=== PATIENT | female | born 1965 | race Caucasian/White ===

== ENCOUNTER 2021-11-15 05:28 | Day surgery (SDC) | payer OTHER ==
[~2021-11-15] VITALS: Ht 160 cm; Wt 72.3 kg
[2021-11-15] MEDS ORDERED: LIDOCAINE 4% 50 ML SOLUTION TP ONE ×2 (05:29)
[2021-11-15] MEDS ORDERED: BENZOCAINE 20% 50 MCG/SPRAY 57 GM TP ONE (05:29)
[2021-11-15] MEDS ORDERED: LIDOCAINE 2% 30 ML JELLY TP ONE (05:29)
[2021-11-15] MEDS ORDERED: SODIUM CHLORIDE 0.9% 1,000 ML IV ONE (06:30)
[2021-11-15] MEDS ORDERED: SODIUM CHLORIDE 0.9% 1,000 ML ONE (06:35)
[2021-11-15 07:07] LABS: COVID AG,FIA SOURCE NASAL SWAB
[2021-11-15] MEDS ORDERED: FentaNYL CITRATE PF 100 MCG/2 ML VIAL ONE (07:07)
[2021-11-15] MEDS ORDERED: MIDAZOLAM HCL 5 MG/ML VIAL ONE (07:07)
[2021-11-15] MEDS ORDERED: MethylPREDNISolone SOD SUCC 125 MG/2 ML VIAL IVP ONE (09:15)
[2021-11-15] MEDS ORDERED: MethylPREDNISolone SOD SUCC 125 MG/2 ML VIAL ONE (09:20)
[2021-11-15] MEDS ORDERED: ONDANSETRON HCL 4 MG/2 ML VIAL IM ONE (11:00)
[2021-11-15] MEDS ORDERED: ONDANSETRON HCL 4 MG/2 ML VIAL ONE (11:01)
[2021-11-15] MEDS ORDERED: OXYGEN THERAPY IH SCH (20:00)
== END 2021-11-15 11:40 | disposition short-term general hospital (02) ==
LOC: SURGERY 05:28
PROVIDERS: ATTEND Internal Medicine Critical Care Medicine
DX: J38.4 Edema of larynx (principal); B37.0 Candidal stomatitis; I10 Essential (primary) hypertension; Z72.89 Other problems related to lifestyle; Z90.49 Acquired absence of other specified parts of digestive tract; Z90.710 Acquired absence of both cervix and uterus; Z79.899 Other long term (current) drug therapy; Z98.890 Other specified postprocedural states
CPT/HCPCS: 31623; 31624; 71045; 87015; 87070; 87101; 87206; 87220; 87426; 88112; 88184; 88185; 88312; C9803; J2250; J2405; J2930; J3010; J7030; Z7610